=== PATIENT | male | born 1965 | race African-American/Black ===

== ENCOUNTER 2023-04-17 00:25 | Emergency (ER) | payer BC, OTHER, SELFPAY ==
--- NOTE | ~2023-04-17 | CT_ITS ---
Non-contrast Head CT History: Status post fall Technique: Axial non-contrast imaging of the brain was performed. Dose reduction technique was used on this scan by utilizing automated exposure control and iterative reconstruction technique. The dose -length product (DLP) was 605.33 mGy-cm. Findings: There is no evidence of intracranial hemorrhage, mass lesion, or acute infarct. Brain par enchyma appears normal. The ventricles and subarachnoid spaces are normal in size. The calvarium ap pears normal. The visualized paranasal sinuses and mastoid air cells are clear. Impression: No significant abnormality seen. Reviewed, dictated and finalized at location . Impression: No significant abnormality seen.
--- NOTE | ~2023-04-17 | CT_ITS ---
Noncontrast CT scan of the cervical spine Technique: Multiple contiguous axial [address] images of the cervical spine were obtained and rec onstructed in 2D sagittal and coronal planes on the acquisition scanner. Dose reduction technique was used on this scan by utilizing automated exposure control, adjustment of the mA and/or kV according to patient size. The dose-length product (DLP) was 663.20 mGy-cm. Clinical History: Pain Findings: No fractures or dislocations. There is mild degenerative disc narrowing throughout the cer vical spine. No prevertebral soft tissue swelling. There is extensive ossification the posterior longitudinal ligament, extending from C2 through C5-C6, resulting in moderate to severe canal stenosis and cord compression at these levels. Probable minima l bilateral neural foraminal narrowing at C5-C6 and C6-C7. Impression: No fracture or subluxation of the cervical spine. 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 Consider follow-up MR to furthe r evaluate cord compression, as indicated. Reviewed, dictated and finalized at location . Impression: No fracture or subluxation of the cervical spine. Extensive ossification of the posterior longitudinal ligament from C2 through C 5-C6, resulting in moderate to severe canal stenosis and cord compression in th ld regions. Consider follow-up MR to further evaluate cord compression, as ind icated.
[2023-04-17 00:30] VITALS: BP 129/74; PULSE 88; RESP 16; TEMP 36.7; O2SAT 99
[2023-04-17 01:42] VITALS: BP 142/91; PULSE 82; RESP 14; TEMP 36.6; O2SAT 98
--- NOTE | 2023-04-17 03:45 | ED.FALL ---
HPI - Fall General Chief Complaint: Fall Stated Complaint: fall in shower, head injury Time Seen by Provider: 04/17/23 03:08 History of Present Illness HPI Narrative: This is a 57-year-old male with past history of diabetes, brought in by EMS after a fall in the motel room. The patient states he was taking a shower, when he slipped, falling striking the left side of his head on the toilet. He denies loss of consciousness. He complains of 5/10 left neck and ear pain. He has no other complaints at this time. Related Data Allergies Allergy/AdvReac Type Severity Reaction Status Date / Time No Known Allergies Allergy Verified 04/17/23 01:41 Review of Systems Review of Systems: CONSTITUTIONAL: Denies fever, chills, or sweats. CARDIOVASCULAR: Denies chest pain, palpitations, or edema. RESPIRATORY: Denies cough or dyspnea. GASTROINTESTINAL: Denies abdominal pain, nausea, vomiting, or diarrhea. GENITOURINARY: Denies dysuria or hematuria. SKIN: Denies rash or itching. MUSCULOSKELETAL: Denies back pain, joint pain, or myalgia. NEUROLOGIC: Headache denies numbness, dizziness, or weakness. PSYCHIATRIC: Denies anxiety or depression. PMFSH Past Medical History Medical History Diabetes mellitus Surgical History Surgical History (Updated 04/18/23 @ 01:43 by Eliseo Branch MD) No significant past surgical history Social History Social History (Updated 04/17/23 @ 03:46 by Eliseo Branch MD) Smoking status: Never smoker Alcohol intake: current Drinks per week: 1 Substance use: never Exam Narrative: GENERAL: Well-developed, well-nourished, and in no acute distress. HEAD: Normocephalic, atraumatic. EYES: PERRLA and EOMI. ENT: Nares clear, no rhinorrhea or epistaxis. Mucous membranes moist. Oropharynx without tonsillar hypertrophy exudate or other lesions. Bilateral TMs pearly cardoza nonbulging. No hemotympanum NECK: Supple. No adenopathy or masses. No midline spine tenderness to palpation, no step-off or crepitus CHEST: Clear to auscultation. No respiratory distress. No wheezes rales or rhonchi HEART: Regular rate and rhythm. No murmur heard. Normal peripheral pulses. ABDOMEN: Soft, nontender, nondistended, normal active bowel sounds. EXTREMITIES: Normal range of motion. No edema. BACK: No midline spine tenderness to palpation, no step-off or crepitus SKIN: Warm, dry, no rash. NEURO: No focal deficits. Alert and oriented x3. PSYCH: Normal mood and affect. Course Course Emergency Course: 04:01 - STAT rad CT head interpretation shows no hemorrhage, hydrocephalus, mass effect or herniation. STAT read CT cervical spine interpretation shows no acute fracture or subluxation. Severe spinal canal stenosis from C2-C6 probably OPLL. Will manage pain and discharge with primary care follow-up. Discussed return and emergency precautions including signs/symptoms of intracranial hemorrhage and focal neural deficit. The patient voiced understanding and is comfortable with the plan. All questions answered to his satisfaction. Vital Signs Vital signs: Vital Signs Temperature 98.0 F 04/17/23 00:30 Pulse Rate 88 04/17/23 00:30 Respiratory Rate 16 04/17/23 00:30 Blood Pressure 129/74 04/17/23 00:30 Pulse Oximetry 99 04/17/23 00:30 Oxygen Delivery Room Air 04/17/23 00:30 Temperature 97.9 F 04/17/23 01:42 Pulse Rate 78 04/17/23 04:37 Respiratory Rate 17 04/17/23 04:37 Blood Pressure 139/84 04/17/23 04:37 Pulse Oximetry 95 04/17/23 04:37 Oxygen Delivery Room Air 04/17/23 00:30 MDM - Fall MDM Narrative Medical decision making narrative: Plan: Imaging, pain control, reassess Differential Diagnosis Differential diagnosis: Likely compression fracture, concussion without loss of consciousness and other (Skull fracture, intracranial hemorrhage, cervical spine fracture, dislocation, other) Discharge P
[2023-04-17] MEDS: ACETAMINOPHEN 500 MG TABLET 1000 MG PO (04:10)
[2023-04-17] MEDS: LIDOCAINE 5% PATCH 1 PATCH TRANSDERM (04:11)
[2023-04-17 04:37] VITALS: BP 139/84; PULSE 78; RESP 17; O2SAT 95
== END 2023-04-17 04:31 | disposition home or self-care (01) ==
PROVIDERS: Emergency Provider Preventive Medicine Aerospace Medicine
DX: S06.0X0A Concussion without loss of consciousness, initial encounter (principal); S19.9XXA Unspecified injury of neck, initial encounter; E11.9 Type 2 diabetes mellitus without complications; W18.2XXA Fall in (into) shower or empty bathtub, initial encounter
CPT/HCPCS: 70450; 72125; 99284; A9270